=== PATIENT | female | born 1975 | race Caucasian/White ===

== ENCOUNTER 2018-03-18 21:06 | Emergency (ER) | payer SELFPAY ==
[~2018-03-18 21:06] MED LIST: AMI25 PO; AML5 PO; ATEN-1 PO; BAC10 PO; CITA-128 PO; CITA-141 PO; CLO1 PO; CYC10 PO; FUR20 PO; KETO10TA PO; LANS30CA70 PO; META400T PO; METH4TAB57 PO; METH5 PO; METH5SOL PO; METXL50 PO; MORP60TA50 PO; MOTRIN; MYLL PO; ORP100 PO; OXYC-944 PO; PER PO; PREDNISON; SERT-181 PO; TOPI200T82 PO; TRA50 PO; VICODAN; WAR5 PO; WARF-1 PO; [UNRECOGNIZED DRUG - CODE] PO
[2018-03-18] MEDS ORDERED: KETOROLAC 30 MG/ML VIAL IVP ONE (21:15)
[2018-03-18] MEDS ORDERED: fentaNYL CITR 100 MCG/2 ML AMP IVP ONE (21:15)
[2018-03-18] MEDS ORDERED: ASPIRIN 81 MG CHEW PO ONE (21:15)
[2018-03-18] MEDS ORDERED: ACET-1966 PO (21:21)
--- NOTE | 2018-03-18 21:35 | EKG ---
FACILITY: [facility] - [place] PATIENT NAME: SEAN BLAIR : [id number] MR: [id number] V: [id number] EXAM DATE: ORDERING PHYSICIAN: LISA MONCADA TECHNOLOGIST: KELLE Samuel Reason : CP Blood Pressure : / mmHG Vent. Rate : 062 BPM Atrial Rate : 062 BPM P-R Int : 154 ms QRS Dur : 070 ms QT Int : 422 ms P-R-T Axes : 049 -11 003 degrees QTc Int : 428 ms Normal sinus rhythm with sinus arrhythmia Cannot rule out Anterior infarct , age undetermined Abnormal ECG No previous ECGs available Confirmed by LEONOR GARCIA ([id number]) on 03/19/2018 6:30:33 AM Referred By: Confirmed By:LEONOR GARCIA
[2018-03-18 21:37] LABS: PLATELET COUNT, AUTOMATED 233 K/uL (150-450)
--- NOTE | 2018-03-18 21:52 | ER Report ---
History and Physical Time Seen By MD: 21:17 Hx. of Stated Complaint: pt started having right sided flank pain yesterday that radiates to the front. HPI/ROS CHIEF COMPLAINT: Right chest wall pain HISTORY OF PRESENT ILLNESS: 43-year-old female presents complaining of right- sided chest pain radiating around her chest for 24 hours. Patient recalls no traumatic injury. She denies recent illness, fever, chills, cough or rhinitis. Patient denies leg swelling or calf pain. Patient denies GERD symptoms. REVIEW OF SYSTEMS: Respiratory: No cough, no dyspnea. Cardiovascular: As above Gastrointestinal: No vomiting, no abdominal pain. Musculoskeletal: No back pain. Allergies: Coded Allergies: clindamycin (Verified Allergy, Intermediate, HIVES, 06/26/13) doxycycline (Verified Allergy, Intermediate, HIVES, 06/26/13) erythromycin base (Verified Allergy, Intermediate, HIVES, 06/26/13) Home Meds Active Scripts Methocarbamol (ROBAXIN-750) 750 Mg Tablet, 1 TAB PO TID PRN for muscle spasm relief, #20 Prov:LISA MONCADA DO 03/18/18 Reported Medications Acetaminophen (TYLENOL) 325 Mg Tablet, 325 MG PO PRN, TAB 03/18/18 Discontinued Reported Medications Sertraline Hcl (SERTRALINE HCL) 100 Mg Tablet, 1 TAB PO QDAY TAKE ONE TABLET BY MOUTH EVERY DAY 12/29/13 Morphine Sulfate (MORPHINE SULFATE ER) 60 Mg Tablet.er, 60 MG PO BID 06/26/13 Methadone Hcl (METHADONE HCL) 5 Mg/5 Ml Solution, 5 MG PO TID 06/26/13 Topiramate (TOPAMAX) 200 Mg Tablet, 200 MG PO DAILY 06/26/13 Hydrocodone Bit/Acetaminophen (Hydrocodone-Apap 10-650 Tab) 1 Each Tablet, 1 EACH PO, 0 Refills 10/15/10 Baclofen (Lioresal) 10 Mg Tab, 10 MG PO TID, 0 Refills 10/15/10 Clonazepam (Klonopin) 1 Mg Tab, 1 MG PO TID 10/15/10 Lansoprazole (Prevacid) 30 Mg Capsule.dr, 30 MG PO QDAY 10/15/10 Amitriptyline Hcl (Elavil) 25 Mg Tab, 25 MG PO QHS, 0 Refills TWO TABS TOTAL 50MG 10/15/10 Past Medical/Surgical History Patient has a 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 Patient has a surgical history of a double surgery, hysterectomy. Hx Smoking: Yes (1/2 PPD) Smoking Status: Current: Every Day Smoker Hx Substance Use Disorder: No Hx Alcohol Use: No Constitutional Vital Sign - Last 24 Hours 03/18/18 03/18/18 03/18/18 03/18/18 21:15 21:21 21:30 21:36 Temp 97.7 Pulse 64 66 69 Resp 18 B/P (MAP) 161/93 162/94 (116) Pulse Ox 97 97 96 O2 Delivery Room Air 03/18/18 03/18/18 03/18/18 03/18/18 21:51 22:00 22:06 22:21 Pulse 63 57 55 Resp 16 15 12 B/P (MAP) 148/90 (109) Pulse Ox 97 94 94 03/18/18 03/18/18 22:36 22:45 Pulse 53 85 Resp 13 16 B/P (MAP) 132/82 (99) Pulse Ox 94 92 O2 Delivery Room Air Physical Exam Vital signs stable, afebrile, pulse ox normal General Appearance: The patient is alert, has no immediate need for airway protection and no current signs of toxicity. Mild distress, skin warm, dry, pink. ENT: HEENT: Pupils equal and round no injection. Oropharynx no redness or exudate Respiratory: Chest is non tender, lungs are clear to auscultation. Mild tenderness on palpation of the right chest wall, no rash Cardiac: regular rate and rhythm, no murmur Gastrointestinal: Abdomen is soft and non tender, no masses, bowel sounds normal. Musculoskeletal: Neck: Neck is supple and non tender. No lymphadenopathy, no JVD Extremities have full range of motion and are non tender. No edema, no calf tenderness Skin: No rashes or lesions. DIFFERENTIAL DIAGNOSIS: After history and physical exam differential diagnosis was considered for chest pain including but not limited to myocardial ischemia, pericarditis pulmonary embolus, chest wall pain, pleural inflammation and pulmonary infectious causes. Medical Decision Making Data Points Result Diagram: 03/18/18211903/18/182119 Laboratory Hematology Test 03/18/18 21:20 Red Blood Count 5.39 M/uL (4.17-5.56) Mean Corpuscular Volume 94.3 fL (80.0-96.0) Mean Corpuscular Hemoglobin 32.5 pg (26.0-33.0) Mean Corpuscular Hemoglobin Concent 34.4 g/dL (32.0-36.0) Red Cell Distribution Width 14.2 % (11.5-14.5) Mean Platelet Volume 7.8 fL (7.2-11.1) Neutrophils (%) (Auto) 51.9 % (39.4-72.5) Lymphocytes (%) (Auto) 36.0 % (17.6-49.6) Monocytes (%) (Auto) 8.9 % (4.1-12.4) Eosinophils (%) (Auto) 2.4 % (0.4-6.7) Basophils (%) (Auto) 0.8 % (0.3-1.4) Nucleated RBC Relative Count (auto) 0.1 /100WBC Neutrophils # (Auto) 4.9 K/uL (2.0-7.4) Lymphocytes # (Auto) 3.4 K/uL (1.3-3.6) Monocytes # (Auto) 0.8 K/uL (0.3-1.0) Eosinophils # (Auto) 0.2 K/uL (0.0-0.5) Basophils # (Auto) 0.1 K/uL (0.0-0.1) Nucleated RBC Absolute Count (auto) 0.01 K/uL D-Dimer Quantitative (PE/DVT) 0.28 ug/ml (0-0.50) Sodium Level 139 mmol/L (137-145) Potassium Level 3.6 mmol/L (3.5-5.0) Chloride Level 109 mmol/L (98-107) Carbon Dioxide Level 23 mmol/L (22-31) Blood Urea Nitrogen 14 mg/dl (7-18) Creatinine 0.70 mg/dl (0.52-1.04) Glomerular Filtration Rate Calc > 60.0 Random Glucose 100 mg/dl (75-110) Calcium Level 9.5 mg/dl (8.4-10.2) Total Bilirubin 0.6 mg/dl (0.2-1.3) Aspartate Amino Transf (AST/SGOT) 27 U/L (0-35) Alanine Aminotransferase (ALT/SGPT) 25 U/L (0-56) Alkaline Phosphatase 96 U/L (0-126) Troponin I < 0.012 ng/ml B-Type Natriuretic Peptide 8 pg/ml (0-100) Total Protein 7.6 g/dl (6.3-8.2) Albumin 4.3 g/dl (3.5-5.0) Amylase Level 61 U/L (0-110) Lipase 110 U/L (23-300) Chemistry Test 03/18/18 21:20 White Blood Count 9.4 k/uL (4.5-11.0) Red Blood Count 5.39 M/uL (4.17-5.56) Hemoglobin 17.5 g/dL (12.0-16.0) Hematocrit 50.8 % (34.0-47.0) Mean Corpuscular Volume 94.3 fL (80.0-96.0) Mean Corpuscular Hemoglobin 32.5 pg (26.0-33.0) Mean Corpuscular Hemoglobin Concent 34.4 g/dL (32.0-36.0) Red Cell Distribution Width 14.2 % (11.5-14.5) Platelet Count 233 K/uL (150-450) Mean Platelet Volume 7.8 fL (7.2-11.1) Neutrophils (%) (Auto) 51.9 % (39.4-72.5) Lymphocytes (%) (Auto) 36.0 % (17.6-49.6) Monocytes (%) (Auto) 8.9 % (4.1-12.4) Eosinophils (%) (Auto) 2.4 % (0.4-6.7) Basophils (%) (Auto) 0.8 % (0.3-1.4) Nucleated RBC Relative Count (auto) 0.1 /100WBC Neutrophils # (Auto) 4.9 K/uL (2.0-7.4) Lymphocytes # (Auto) 3.4 K/uL (1.3-3.6) Monocytes # (Auto) 0.8 K/uL (0.3-1.0) Eosinophils # (Auto) 0.2 K/uL (0.0-0.5) Basophils # (Auto) 0.1 K/uL (0.0-0.1) Nucleated RBC Absolute Count (auto) 0.01 K/uL D-Dimer Quantitative (PE/DVT) 0.28 ug/ml (0-0.50) Glomerular Filtration Rate Calc > 60.0 Calcium Level 9.5 mg/dl (8.4-10.2) Total Bilirubin 0.6 mg/dl (0.2-1.3) Aspartate Amino Transf (AST/SGOT) 27 U/L (0-35) Alanine Aminotransferase (ALT/SGPT) 25 U/L (0-56) Alkaline Phosphatase 96 U/L (0-126) Troponin I < 0.012 ng/ml B-Type Natriuretic Peptide 8 pg/ml (0-100) Total Protein 7.6 g/dl (6.3-8.2) Albumin 4.3 g/dl (3.5-5.0) Amylase Level 61 U/L (0-110) Lipase 110 U/L (23-300) Coagulation Test 03/18/18 21:20 D-Dimer Quantitative (PE/DVT) 0.28 ug/ml EKG/Imaging EKG Interpretation 12 lead EK Rhythm: normal sinus rhythm with sinus arrhythmia [place]: normal QRS: normal ST segments: normal, no evidence of ischemia Imaging X-ray: Two-view chest x-ray was obtained. I viewed the images myself on the PACS system. My interpretation of the images is: No infiltrate, no effusion, normal mediastinum. [The radiologist interpretation had no clinically significant variation from this interpretation]. ED Course/Re-evaluation Clinical Indication for ER IV: IV Access ED Course Patient was admitted to an examination room. H&P was done. The differential diagnoses was considered. Diagnostic EKG shows no evidence of ischemia. D- dimer, troponin are unremarkable. Patient's white blood cell count is normal. A chest x-ray shows no spontaneous pneumothorax, infiltrate or effusion. Chin has musculoskeletal chest and back pain. She is advised ibuprofen 600 milligrams 3 times daily with food. Patient advised to follow-up with primary care if unimproved in 3-5 days. Decision to Disposition Date: Mar 18, 2018 Decision to Disposition Time: 22:30 Depart Departure Latest Vital Signs Vital Signs Date Time Temp Pulse Resp B/P (MAP) Pulse Ox O2 Delivery O2 Flow Rate FiO2 03/18/18 22:45 85 16 132/82 (99) 92 Room Air 03/18/18 21:15 97.7 Impression: Primary Impression: Chest wall pain Condition: Improved Disposition: HOME OR SELF-CARE Referrals: GERRI HOPE MD, FARRUKH MD New Scripts Methocarbamol (ROBAXIN-750) 750 Mg Tablet 1 TAB PO TID PRN for muscle spasm relief, #20 Prov: LISA MONCADA DO 03/18/18 Patient Instructions: Chest Wall Pain (ED) Additional Instructions: Take ibuprofen 200 mg 3 tablets 3 times a day with food Apply heating pad to the affected area Follow-up with primary care if unimproved in 3-5 days LISA MONCADA DO Mar 18, 2018 21:52
--- NOTE | 2018-03-18 22:00 | RADIOLOGY IMAGING REPORT ---
FACILITY: [facility] - [place] PATIENT NAME: Katalina Shay : 1975 MR: [id number] V: [id number] EXAM DATE: [id number] ORDERING PHYSICIAN: LISA MONCADA TECHNOLOGIST: Location: [facility] - [place] Patient: Katalina Shay : 1975 Visit/Account:[id number] Date of Sevice: 03/18/2018 HISTORY: Right-sided chest pain DATE: 03/18/2018 9:15 PM TECHNIQUE: CHEST PA AND LAT COMPARISON: CT chest October 17, 2007 FINDINGS: The cardiomediastinal silhouette is of normal size and contour. No pleural effusion. No pne umothorax. No consolidation. The lungs are adequately expanded. IMPRESSION: No acute findings Report Dictated By: Ivania Toure MD at 03/18/2018 9:54 PM Report E-Signed By: Ivania Toure MD at 03/18/2018 9:56 PM WSN:[email or web address]
[2018-03-18] MEDS ORDERED: METH-543 PO (22:33)
[2018-03-18 22:45] VITALS: BP 132/82
== END 2018-03-18 22:45 | disposition home or self-care (01) ==
LOC: ER 21:30
DX: R07.89 Other chest pain (principal); F17.210 Nicotine dependence, cigarettes, uncomplicated
CPT/HCPCS: 82150; 83690; 83880; 84484; 85025; 85379; 93005; 96374; 96375; 99284; J1885; J3010; 71046; 82040; 82247; 82310; 82374; 82435; 82565; 82947; 84075; 84132; 84155; 84295; 84450; 84460; 84520

== ENCOUNTER 2018-06-16 18:15 | Emergency (ER) | payer SELFPAY ==
[~2018-06-16 18:15] MED LIST changes: +ACET-1966 PO; +METH-543 PO
--- NOTE | 2018-06-16 18:40 | ER Report ---
History and Physical Time Seen By MD: 18:40 HPI/ROS CHIEF COMPLAINT: Cough, shortness breath HISTORY OF PRESENT ILLNESS: Patient is a 43-year-old female here with complaints of cough, shortness breath for past several days. Patient is a smoker and reports intermittent dyspnea, cough which is nonproductive. Denies fevers, chill s, chest pain, abdominal pain, nausea, vomiting REVIEW OF SYSTEMS: Constitutional: No fever, no chills. Eyes: No discharge. ENT: No sore throat. Cardiovascular: No chest pain, no palpitations. Respiratory: + cough, + shortness of breath. Gastrointestinal: No abdominal pain, no vomiting. Genitourinary: No hematuria. Musculoskeletal: No back pain. Skin: No rashes. Neurological: No headache. Allergies: Coded Allergies: clindamycin (Verified Allergy, Intermediate, HIVES, 06/26/13) doxycycline (Verified Allergy, Intermediate, HIVES, 06/26/13) erythromycin base (Verified Allergy, Intermediate, HIVES, 06/26/13) Home Meds Active Scripts Prednisone (PREDNISONE) 50 Mg Tablet, 50 MG PO QDAY for 4 Days, #4 TAB Prov:SIMA KHANNA S DO 06/16/18 Azithromycin (ZITHROMAX) 250 Mg Tablet, 1 TAB PO QDAY for 4 Days, #4 TAB Prov:KHANNAABRANSIMA S DO 06/16/18 Methocarbamol (ROBAXIN-750) 750 Mg Tablet, 1 TAB PO TID PRN for muscle spasm relief, #20 Prov:LISA MONCADA DO 03/18/18 Reported Medications Acetaminophen (TYLENOL) 325 Mg Tablet, 325 MG PO PRN, TAB 03/18/18 Hx Smoking: Yes (1/2 PPD) Smoking Status: Current: Every Day Smoker Hx Substance Use Disorder: No Hx Alcohol Use: No Constitutional Vital Sign - Last 24 Hours 06/16/18 06/16/18 06/16/18 06/16/18 18:41 18:42 18:45 19:00 Temp 99.6 Pulse 86 86 Resp 18 B/P (MAP) 134/75 134/75 (94) 119/80 (93) Pulse Ox 90 89 O2 Delivery Room Air 06/16/18 06/16/18 06/16/18 06/16/18 19:15 19:30 19:45 20:00 Pulse 88 87 B/P (MAP) 117/68 (84) 122/72 (89) Pulse Ox 88 86 06/16/18 20:04 Pulse Ox 86 Physical Exam General Appearance: The patient is alert, has no immediate need for airway protection and no signs of toxicity. No acute distress Eyes: Pupils equal and round no pallor or injection. ENT, Mouth: Mucous membranes are moist. Respiratory: There are no retractions, lungs are clear to auscultation, + intermittent coughing Cardiovascular: Regular rate and rhythm. Gastrointestinal: Abdomen is soft and non tender, no masses, bowel sounds normal. Neurological: No focal neurological deficits Skin: Warm and dry, no rashes. Musculoskeletal: Neck is supple non tender. Extremities are nontender, nonswollen and have full range of motion. DIFFERENTIAL DIAGNOSIS: After history and physical exam differential diagnosis was considered for shortness of breath including but not limited to pulmonary infectious process, COPD, asthma, pulmonary embolus and congestive heart failure. Medical Decision Making Data Points Laboratory Hematology Test 06/16/18 18:43 Influenza Virus Type A (PCR) Negative (NEGATIVE) Influenza Virus Type B (PCR) Negative (NEGATIVE) Chemistry Test 06/16/18 18:43 Influenza Virus Type A (PCR) Negative (NEGATIVE) Influenza Virus Type B (PCR) Negative (NEGATIVE) EKG/Imaging Imaging PATIENT NAME: Katalina Shay : 1975 MR: [id number] V: [id number] EXAM DATE: [id number] ORDERING PHYSICIAN: SIMA KHANNA TECHNOLOGIST: Location: [facility] - [place] Patient: Katalina Shay : 1975 Visit/Account:[id number] Date of Sevice: 06/16/2018 2 VIEWS CHEST INDICATION: Cough since Wednesday COMPARISON: X-ray examination of the chest March 18, 2018 FINDINGS: Heart size within normal limits. Lungs are clear without focal infiltrate or consolidation There is no pneumothorax or pleural effusion. No acute bony finding IMPRESSION: 1. No acute cardiopulmonary process. ED Course/Re-evaluation ED Course Patient is a 43-year-old female here with complaints of cough, shortness of breath for the past several days. Patient does have a history significant for many years of smoking. Chest x-ray showed no acute consolidations. Patient was started on prednisone course, azithromycin pack for treatment of COPD exacerbation. Patient was hemodynamically stable, afebrile at time of discharge. Return precautions provided. Close PCP follow-up recommended Decision to Disposition Date: Jun 16, 2018 Decision to Disposition Time: 20:00 Depart Departure Latest Vital Signs Vital Signs Date Time Temp Pulse Resp B/P (MAP) Pulse Ox O2 Delivery O2 Flow Rate FiO2 06/16/18 20:04 86 06/16/18 20:00 122/72 (89) 06/16/18 19:45 87 06/16/18 18:41 99.6 18 Room Air Impression: Primary Impression: COPD with acute exacerbation Condition: Improved Disposition: HOME OR SELF-CARE Referrals: MEAGAN MICHELLE MD (PCP) New Scripts Prednisone (PREDNISONE) 50 Mg Tablet 50 MG PO QDAY for 4 Days, #4 TAB Prov: SIMA KHANNA DO 06/16/18 Azithromycin (ZITHROMAX) 250 Mg Tablet 1 TAB PO QDAY for 4 Days, #4 TAB Prov: SIMA KHANNA DO 06/16/18 Patient Instructions: COPD (Chronic Obstructive Pulmonary Disease) (ED) Additional Instructions: Please take one tablet or 50 mg of prednisone daily for the next 4 days. Please take 1 tablet of azithromycin daily for the next 4 days. Please return immediately if you develop worsening symptoms, increased shortness breath, chest pain, fevers or chills, nausea or vomiting. SIMA KHANNA DO Jun 16, 2018 18:40
--- NOTE | 2018-06-16 19:52 | RADIOLOGY IMAGING REPORT ---
FACILITY: [facility] PATIENT NAME: Katalina Shay : 1975 MR: [id number] V: [id number] EXAM DATE: ORDERING PHYSICIAN: SIMA KHANNA TECHNOLOGIST: Location: [facility] [place] Patient: Katalina Shay : 1975 Visit/Account:[id number] Date of Sevice: 06/16/2018 2 VIEWS CHEST INDICATION: Cough since Wednesday COMPARISON: X-ray examination of the chest March 18, 2018 FINDINGS: Heart size within normal limits. Lungs are clear without focal infiltrate or consolidation There is no pneumothorax or pleural effusion. No acute bony finding IMPRESSION: 1. No acute cardiopulmonary process. Report Dictated By: Fredrick Ritchie MD at 06/16/2018 7:46 PM Report E-Signed By: Fredrick Ritchie MD at 06/16/2018 7:47 PM WSN:[id number]
[2018-06-16 20:00] VITALS: BP 122/72
[2018-06-16] MEDS ORDERED: AZITHROMYCIN 250 MG TAB PO ONE (20:00)
[2018-06-16] MEDS ORDERED: predniSONE 20 MG TAB PO ONE (20:00)
[2018-06-16] MEDS ORDERED: AZIT-1 PO (20:02)
[2018-06-16] MEDS ORDERED: PRED50TA22 PO (20:02)
== END 2018-06-16 20:10 | disposition home or self-care (01) ==
LOC: ER 18:47
DX: J44.1 Chronic obstructive pulmonary disease with (acute) exacerbation (principal); F17.200 Nicotine dependence, unspecified, uncomplicated
CPT/HCPCS: 71046; 87502; 99283; J7512; Q0144